=== PATIENT | female | born 1955 | race Two or more races ===

== ENCOUNTER → 2022-08-26 | Outpatient (CLI) | payer MEDICARE ==
[~2022-08-26] MED LIST: ASCOPOW OR; ATOR10TA PO; CHOL20007 OR; METO-289 PO; NIACPOW24 XX; VALS320T15 PO
== END | disposition home or self-care (01) ==
LOC: LAB 14:34
PROVIDERS: ATTEND Internal Medicine Gastroenterology
DX: R19.7 Diarrhea, unspecified (principal)
CPT/HCPCS: 87045; 87427; 87493

== ENCOUNTER → 2022-08-28 | Day surgery (SDC) | payer MEDICARE ==
[2022-08-26 09:13] LABS: Basophils # (auto) 0 10 ^3/uL (0-0.2); Basophils % (auto) 0.5 % (0.0-2.0); Eosinophils # (auto) 0 10 ^3/uL (0-0.8); Eosinophils % (auto) 0.8 % (0.0-7.0); Hematocrit 44.5 % (36.0-46.0); Hemoglobin 15.4 g/dL (12.2-16.2); Lymphocytes # (auto) 1.9 10 ^3/uL (0.4-5.4); Mean Corpuscular Hemoglobin 33.4 pg (28.0-32.0); Mean Corpuscular Hgb Conc. 34.6 g/dL (32.0-36.0); Mean Corpuscular Volume 96.6 fL (80.0-100.0); Monocytes # (auto) 0.4 10 ^3/uL (0-1.3); Monocytes % (auto) 7.4 % (0.0-12.0); Neutrophils # (auto) 3.4 10 ^3/uL (1.6-8.6); Neutrophils % (auto) 58.3 % (37.0-80.0); Nucleated Red Blood Cells % 0.2 %; Red Blood Cells 4.61 10^6/uL (4.0-5.20); Red Cell Distribution Width 12.9 % (11.8-14.3); White Blood Cell 5.9 10^3/uL (4.4-10.8)
[2022-08-26 09:55] LABS: Calcium 10.1 mg/dL (8.5-10.1); Potassium 4.1 mmol/L (3.5-5.1)
[2022-08-26 10:04] LABS: BUN/Creatinine Ratio 17.9; Bilirubin, Total 1.3 mg/dL (0.2-1.0); Total Protein 7.4 g/dL (6.4-8.2)
[2022-08-26 10:31] LABS: INR 0.99 (0.9-1.15); Partial Thromboplastin Time 29.3 sec (24.6-33.4)
[~2022-08-28] VITALS: Ht 162.6 cm; Wt 77.6 kg
[~2022-08-28] MED LIST changes: +SODIUM CHLORIDE LOCK 10 ML ONE; +diphenhdrAMINE HCL 50 MG/1 ML VL ONE
[2022-08-28] MEDS: MIDAZOLAM HCL 5 MG/ML-1ML VIAL ONE ×3 (10:48→10:54)
[2022-08-28] MEDS: fentaNYL CITRATE 100 MCG/2 ML VL ONE ×3 (10:48→10:54)
[2022-08-28 11:42] VITALS: BP 106/59
== END | disposition home or self-care (01) ==
LOC: GI 09:41
PROVIDERS: ATTEND Internal Medicine Gastroenterology
DX: K58.0 Irritable bowel syndrome with diarrhea (principal); K57.30 Diverticulosis of large intestine without perforation or abscess without bleeding; J45.909 Unspecified asthma, uncomplicated; E11.9 Type 2 diabetes mellitus without complications; Z90.49 Acquired absence of other specified parts of digestive tract; Z90.710 Acquired absence of both cervix and uterus; Z98.890 Other specified postprocedural states; Z79.899 Other long term (current) drug therapy; Z79.84 Long term (current) use of oral hypoglycemic drugs; I25.2 Old myocardial infarction; Z86.010 Personal history of colon polyps
CPT/HCPCS: 36415; 45380; 80053; 82962; 85025; 85610; 85730; 88305; J1200; J2250; J3010; J7030; U0003